=== PATIENT | female | born 1960 | race Caucasian/White ===

== ENCOUNTER 2021-02-16 04:41 | Emergency (ER) | payer OTHER ==
[2021-02-16 05:42] LABS: BILIRUBIN NEGATIVE (NEGATIVE); BLOOD 3+ Ery/uL (NEGATIVE); CLARITY CLEAR (CLEAR); COLOR YELLOW (YELLOW); GLUCOSE (U) NORMAL (NORMAL); LEUKOCYTES 2+ Leu/uL (NEGATIVE); NITRITE NEGATIVE (NEGATIVE); PROTEIN NEGATIVE (NEGATIVE); SPECIFIC GRAVITY 1.025 (1.001-1.030); UROBILINOGEN 0.2 mg/dL (0.2-1.0)
[2021-02-16 05:43] LABS: BASOPHIL 0.8 % (0-2); EOSINOPHIL 2.3 % (0-5); HCT 42.9 % (37.0-47.0); HGB 14.7 g/dl (12.5-16.0); LYMPHOCYTE 38.7 % (15-48); MCH 32.5 pg (25.0-31.0); MCHC 34.3 g/dL (32.0-36.0); MCV 94.7 fL (78.0-100.0); MONOCYTE 9.7 % (0-12); MPV 10.9 fL (6.0-9.5); NEUTROPHIL 48.2 % (41-80); NRBC 0; PLT 224 K/uL (150-400); RBC 4.53 M/uL (4.20-5.40); RDW 12.3 % (11.5-14.0); WBC 6.2 K/uL (4.0-10.5)
[2021-02-16 05:57] LABS: BACTERIA 1+
[2021-02-16 06:05] LABS: ALBUMIN 4.1 g/dL (3.4-5.0); BILIRUBIN - TOTAL 0.8 mg/dL (0.2-1.0); BUN/CREAT RATIO (CALC) 27.5 RATIO; CREATININE 0.91 mg/dL (0.51-0.95); POTASSIUM 3.9 mmol/L (3.5-5.1); TOTAL PROTEIN 7.1 g/dL (6.4-8.2)
[2021-02-16] MEDS ORDERED: ONDANSETRON ODT4 MG PO (06:53)
[2021-02-16] MEDS ORDERED: NORCO 5-325 TA1 EACH PO (06:53)
[2021-02-16] MEDS ORDERED: CEPHALEXIN500 MG PO (08:33)
== END 2021-02-16 10:43 | disposition home or self-care (01) ==
LOC: FER 04:41
PROVIDERS: Emergency Medicine
DX: N13.2 Hydronephrosis with renal and ureteral calculous obstruction (principal); Z90.710 Acquired absence of both cervix and uterus
CPT/HCPCS: 36415; 80053; 81001; 83605; 83690; 85025; J1170; J1885; J2405; J7030